=== PATIENT | female | born 1980 | race Two or more races ===

== ENCOUNTER 2024-12-15 07:02 | Emergency (ER) | payer OTHER ==
[~2024-12-15] VITALS: Ht 154.9 cm; Wt 45.4 kg
[~2024-12-15 07:02] MED LIST: GILTUSS COUGH-118 M1 PO; PROVENTIL S1 ML/5 MG; ZYRTEC10 M3 PO
[2024-12-15] MEDS ORDERED: DEXAMETHASONE SODIUM PHOSPHATE 4 MG/ML VIAL IM ONE (07:45)
[2024-12-15] MEDS ORDERED: KETOROLAC TROMETHAMINE 60 MG VIAL IM ONE ×2 (07:45→07:46)
[2024-12-15] MEDS ORDERED: ORPHENADRINE CITRATE 30 MG/ML AMPUL IM ONE (07:45)
[2024-12-15] MEDS ORDERED: ACETAMINOPHEN 500 MG GEL..CAP PO ONE ×3 (07:45→07:48)
[2024-12-15] MEDS ORDERED: ORPHENADRINE CITRATE 30 MG/ML AMPUL ONE (07:46)
[2024-12-15] MEDS ORDERED: DEXAMETHASONE SODIUM PHOSPHATE 4 MG/ML VIAL ONE (07:47)
[2024-12-15] MEDS ORDERED: PEPCID AC20 MG PO (09:42)
[2024-12-15] MEDS ORDERED: KETO10TA2 PO (09:42)
[2024-12-15] MEDS ORDERED: NORFLEX100MG PO (09:42)
== END 2024-12-15 10:15 | disposition home or self-care (01) ==
LOC: ER 07:02
DX: M25.561 Pain in right knee (principal); M77.9 Enthesopathy, unspecified; J45.909 Unspecified asthma, uncomplicated

== ENCOUNTER 2024-12-24 09:23 | Outpatient (CLI) | payer OTHER ==
[~2024-12-24 09:23] MED LIST changes: +KETO10TA2 PO; +NORFLEX100MG PO; +PEPCID AC20 MG PO
== END 2024-12-24 09:33 | disposition home or self-care (01) ==
LOC: SONOGRAMA 09:23
DX: M25.561 Pain in right knee (principal)